=== PATIENT | male | born 1950 | race Caucasian/White ===

== ENCOUNTER 2019-02-01 08:26 | Emergency (ER) | payer MEDICARE, BC ==
[~2019-02-01] VITALS: Ht 177.8 cm; Wt 134.1 kg
[~2019-02-01 08:26] MED LIST: AMLO10TA PO; ATOR20TA66 PO; CHLO118M PO; FERR325T39 PO; FINA5TAB11 PO; LOSA1TAB39 PO; METO25TA6 PO; POTA20TA19 PO; TERA10CA4 PO; WARF7.5T48 PO
[2019-02-01 08:30] VITALS: BP 97/61
[2019-02-01] MEDS ORDERED: ACYC-202 PO (09:40)
[2019-02-01] MEDS ORDERED: TRAM50TA2 PO (09:40)
[2019-02-01] MEDS ORDERED: ACYC5CRE2 TP (09:40)
[2019-02-01] MEDS ORDERED: GABA300C PO (09:40)
== END 2019-02-01 09:59 | disposition home or self-care (01) ==
LOC: ER 08:26
DX: B02.9 Zoster without complications (principal); M54.5 Low back pain; G89.29 Other chronic pain; Z98.890 Other specified postprocedural states; Z79.2 Long term (current) use of antibiotics; Z79.899 Other long term (current) drug therapy; Z79.01 Long term (current) use of anticoagulants
CPT/HCPCS: 99284

== ENCOUNTER 2023-10-21 13:14 | Emergency (ER) | payer OTHER ==
[~2023-10-21] VITALS: Ht 177.8 cm; Wt 125.0 kg
[~2023-10-21 13:14] MED LIST changes: +GABA300C PO; +LOP25T PO; -METO25TA6 PO; +POTA-207 PO; -POTA20TA19 PO
[2023-10-21 13:20] VITALS: BP 83/62; PULSE 75; RESP 16; TEMP 97.7; O2SAT 96
[2023-10-21 14:00] LABS: BASOPHILS % (AUTO) 0.3 % (0-1); EOSINOPHILS # (AUTO) 0.1 X10'3 (0-0.9); EOSINOPHILS % (AUTO) 1.5 % (0-6); HEMATOCRIT 42.5 % (42.0-52.0); HEMOGLOBIN 14.4 g/dl (14.0-17.9); LYMPHOCYTES # (AUTO) 1.2 X10'3 (1.1-4.8); LYMPHOCYTES % (AUTO) 19.6 % (21-51); MEAN CORPUSCULAR HEMOGLOBIN 32.6 PG (27.0-31.0); MEAN CORPUSCULAR HGB CONC 33.9 g/dL (33.0-36.5); MEAN CORPUSCULAR VOLUME 96.3 FL (78-98); MEAN PLATELET VOLUME 8.1 FL (7.4-10.4); MONOCYTES # (AUTO) 0.4 X10'3 (0-0.9); MONOCYTES % (AUTO) 7.3 % (2-12); NEUTROPHILS # (AUTO) 4.2 X10'3 (1.8-7.7); NEUTROPHILS % (AUTO) 71.3 % (42-75); PLATELET COUNT 182 X10'3 (140-440); RED BLOOD COUNT 4.42 X10'6 (4.70-6.10); RED CELL DISTRIBUTION WIDTH 13.4 % (11.5-14.5); WHITE BLOOD COUNT 5.9 X10'3 (4.5-11.0)
[2023-10-21 14:20] LABS: ALBUMIN 3.8 G/DL (3.4-5.0); ANION GAP 6 (8-16); BLOOD UREA NITROGEN 60 MG/DL (7-18); CALCIUM 8.5 MG/DL (8.5-10.1); CHLORIDE 105 MMOL/L (99-107); CREATININE 1.58 MG/DL (0.60-1.10); GLUCOSE 186 MG/DL (70-104); POTASSIUM 4.8 MMOL/L (3.5-5.1); PRO BRAIN NATRIURETIC PEPTIDE 722 PG/ML (0-125); SODIUM 135 MMOL/L (135-145); TOTAL CARBON DIOXIDE 24.3 MMOL/L (24-32); eCRCL 42 ML/MIN; eGFR 43 ML/MIN
== END 2023-10-21 20:57 | disposition left against medical advice (07) ==
LOC: ER 13:14
DX: R06.00 Dyspnea, unspecified (principal); R06.02 Shortness of breath; R19.00 Intra-abdominal and pelvic swelling, mass and lump, unspecified site; Z53.21 Procedure and treatment not carried out due to patient leaving prior to being seen by health care provider
CPT/HCPCS: 36415; 71045; 80048; 83880; 84484; 85025; 93005

== ENCOUNTER 2023-12-02 18:03 | Emergency (ER) | payer OTHER ==
[~2023-12-02] VITALS: Ht 177.8 cm; Wt 122.7 kg
[2023-12-02 18:22] VITALS: BP 106/58; PULSE 73; RESP 18; TEMP 97.2; O2SAT 96
[2023-12-02] MEDS: oxymetazoline 15 ML nasal spray NS ONE (19:40)
[2023-12-02] MEDS ORDERED: AMOX-117 PO (19:54)
[2023-12-02] MEDS: LIDOcaine 1% W/epiNEPHrine 1:100,000 20ml vial SQ ONE (19:56)
[2023-12-02] MEDS: tranexamic acid 100mg/ml inj. TP ONE (19:56)
[2023-12-02] MEDS: amox tr/potassium clavulanate 875/125mg TAB PO ONE (19:58)
== END 2023-12-02 20:04 | disposition home or self-care (01) ==
LOC: ER 18:04
DX: R04.0 Epistaxis (principal); G89.29 Other chronic pain; Z79.899 Other long term (current) drug therapy; Z79.2 Long term (current) use of antibiotics; Z98.890 Other specified postprocedural states
CPT/HCPCS: 30905; 82948; 99284; J3490

== ENCOUNTER 2024-03-22 11:58 | Inpatient (IN) | payer OTHER, MEDICARE ==
[~2024-03-22] VITALS: Ht 177.8 cm; Wt 130.0 kg
[2024-03-22 12:50] LABS: BASOPHILS % (AUTO) 0.4 % (0-1); EOSINOPHILS # (AUTO) 0.1 X10'3 (0-0.9); EOSINOPHILS % (AUTO) 1.6 % (0-6); HEMOGLOBIN 13.1 g/dl (14.0-17.9); LYMPHOCYTES # (AUTO) 0.8 X10'3 (1.1-4.8); MEAN CORPUSCULAR HEMOGLOBIN 30.8 PG (27.0-31.0); MEAN CORPUSCULAR HGB CONC 32.8 g/dL (33.0-36.5); MEAN CORPUSCULAR VOLUME 93.9 FL (78-98); MEAN PLATELET VOLUME 7.4 FL (7.4-10.4); MONOCYTES # (AUTO) 0.7 X10'3 (0-0.9); MONOCYTES % (AUTO) 11.2 % (2-12); NEUTROPHILS # (AUTO) 4.6 X10'3 (1.8-7.7); NEUTROPHILS % (AUTO) 73.8 % (42-75); PLATELET COUNT 248 X10'3 (140-440); RED BLOOD COUNT 4.26 X10'6 (4.70-6.10); RED CELL DISTRIBUTION WIDTH 13.6 % (11.5-14.5); WHITE BLOOD COUNT 6.2 X10'3 (4.5-11.0)
[2024-03-22 13:00] LABS: ALBUMIN 2.5 G/DL (3.4-5.0); ANION GAP 16 (8-16); BLOOD UREA NITROGEN 102 MG/DL (7-18); BUN/CREATININE RATIO 16.5 (10.0-20.0); CALCIUM 8.5 MG/DL (8.5-10.1); CHLORIDE 98 MMOL/L (99-107); CREATININE 6.18 MG/DL (0.60-1.10); GLUCOSE 172 MG/DL (70-104); MAGNESIUM 2.6 MG/DL (1.5-2.4); POTASSIUM 3.3 MMOL/L (3.5-5.1); SODIUM 133 MMOL/L (135-145); TOTAL CARBON DIOXIDE 18.9 MMOL/L (24-32); eCRCL 11 ML/MIN; eGFR 9 ML/MIN
[2024-03-22] MEDS: normal saline 1000ML IV soln IVB ONE ×3 (13:43→16:19)
[2024-03-22] MEDS ORDERED: magnesium sulf-water 4G/100mL 100 ML IV PRN (14:20)
[2024-03-22] MEDS ORDERED: magnesium Cl slow-release 64mg tablet PO PRN (14:20)
[2024-03-22] MEDS ORDERED: ondansetron/PF 4mg/2ml inj IV PRN (14:20)
[2024-03-22] MEDS ORDERED: potassium Cl 40MEQ/1/2NS 520ml 520 ML IV PRN (14:20)
[2024-03-22] MEDS ORDERED: magnesium sulf-water 2g/50mL 50 ML IV PRN (14:20)
[2024-03-22] MEDS ORDERED: potassium Cl 20 mEq SR tablet PO PRN (14:20)
[2024-03-22 14:36] LABS: PRO BRAIN NATRIURETIC PEPTIDE 7757 PG/ML (0-125)
[2024-03-22] MEDS ORDERED: dextrose 5%-normal saline 1,000 ML IV SCH (14:40)
[2024-03-22] MEDS: LidoCAINE 2% Topical Jelly 11mL syringe (UROJET) TOP ONE (14:55)
[2024-03-22] MEDS: ringers solution, lactated 1000ml IV soln IV ONE ×2 (14:55→18:04)
[2024-03-22 15:29] LABS: BILIRUBIN,URINE MODERATE (Neg); CLARITY,URINE SLIGHTLY CLOUDY (Clear); COLOR,URINE YELLOW (Yellow); GLUCOSE, URINE NEGATIVE (Neg); KETONES,URINE 15 mg/dl (Neg); LEUKOCYTE ESTERASE ,URINE NEGATIVE (Neg); NITRITES, URINE NEGATIVE (Neg); OCCULT BLOOD,URINE NEGATIVE (Neg); PROTEIN,URINE TRACE mg/dl (Neg); UROBILINOGEN,URINE 0.2 E.U/dL (0.2-1.0)
[2024-03-22] MEDS: normal saline 1000ml 1,000 ML IV SCH (15:45)
[2024-03-22 15:47] LABS: UA COLLECTION TYPE FOLEY CATH
[2024-03-22] MEDS: NORepinephrine 8mg/ 250ml NS 250 ML IV SCH (15:48)
[2024-03-22 15:50] LABS: MUCUS STRANDS FEW /LPF (Neg)
[2024-03-22 15:51] LABS: AMORPHOUS URATES 1+; FINE GRANULAR CAST 0-3 /LPF (NEGATIVE); HYALINE CASTS >30 /LPF (NEGATIVE); SQUAMOUS EPITHELIAL CELL,UR FEW /LPF (FEW)
[2024-03-22 15:52] LABS: CAL OXALATE CRYSTALS 1+ /HPF (NEGATIVE); TRANSITIONAL EPI CELLS,URINE FEW /HPF
[2024-03-22 15:53] LABS: BACTERIA,URINE FEW /HPF (Neg)
[2024-03-22] MEDS: dexamethasone sod phosphate 10mg/ml inj IV STA (16:13)
[2024-03-22] MEDS: normal saline 1000ml 1,000 ML IV ONE (16:14)
[2024-03-22] MEDS ORDERED: ringers solution, lactated 1000ml IV soln IV ONE (16:15)
[2024-03-22] MEDS: glycopyrrolate 0.2mg/ml inj IV ONE (16:18)
[2024-03-22] MEDS: ringers solution, lacted 2,000 ML IV ONE (17:08)
[2024-03-22] MEDS: HYDROmorphone 1 mg/ml syringe IM PRN (18:17)
[2024-03-22] MEDS ORDERED: glucagon, human recombinant 1mg kit SUBCUT PRN (18:25)
[2024-03-22] MEDS ORDERED: dextrose 50%-water 50ml dispensing syringe IV PRN ×2 (18:25)
[2024-03-22] MEDS ORDERED: DEXTROSE 15 GM of carb/4 tabs (each vial/BOTTLE has 4 tablets) PO PRN ×2 (18:25)
[2024-03-22] MEDS: PERFLUTREN PROTEIN-A MICROSPHR (Optison) 0.22 MG/ML 3ML VIAL IV ONE (18:25)
[2024-03-22] MEDS: CefTRIAXone 2gm/D5W 50ml BAG 50 ML IV SCH (18:52)
[2024-03-22 19:15] LABS: HEMOGLOBIN A1C 8.9 % (4.5-6.2)
[2024-03-22] MEDS: K and/or MAG REPLACEMENT MC SCH (20:00)
[2024-03-22] MEDS: ringers solution, lacted 1,000 ML IV SCH (20:03)
[2024-03-22] MEDS: NORepinephrine 32 MG in normal saline 250ml IV soln 218 ML IV SCH (20:18)
[2024-03-22] MEDS: pantoprazole 40 MG vial IV SCH (20:36)
[2024-03-22] MEDS: potassium Cl 20 mEq SR tablet PO PRN (20:56)
[2024-03-22] MEDS: insulin glargine (Lantus) pen - multi-dose SQ SCH (21:00)
[2024-03-22] MEDS: INSULIN LISPRO 100 UNIT/ML INSULN.PEN MULTI-DOSE SQ SCH (22:33)
[2024-03-22 23:00] VITALS: BP 103/43; PULSE 74; RESP 12; O2SAT 95
[2024-03-22 23:43] LABS: BASOPHILS % (AUTO) 0.2 % (0-1); EOSINOPHILS % (AUTO) 0.4 % (0-6); HEMATOCRIT 36.7 % (42.0-52.0); LYMPHOCYTES # (AUTO) 0.9 X10'3 (1.1-4.8); LYMPHOCYTES % (AUTO) 9.6 % (21-51); MEAN CORPUSCULAR HEMOGLOBIN 31.1 PG (27.0-31.0); MEAN CORPUSCULAR HGB CONC 32.9 g/dL (33.0-36.5); MEAN CORPUSCULAR VOLUME 94.5 FL (78-98); MEAN PLATELET VOLUME 7.1 FL (7.4-10.4); MONOCYTES # (AUTO) 1.1 X10'3 (0-0.9); MONOCYTES % (AUTO) 12.2 % (2-12); NEUTROPHILS # (AUTO) 7.1 X10'3 (1.8-7.7); NEUTROPHILS % (AUTO) 77.6 % (42-75); PLATELET COUNT 238 X10'3 (140-440); RED BLOOD COUNT 3.88 X10'6 (4.70-6.10); RED CELL DISTRIBUTION WIDTH 13.7 % (11.5-14.5); WHITE BLOOD COUNT 9.1 X10'3 (4.5-11.0)
[2024-03-22 23:53] LABS: APTT 31 SECONDS (22-32); INR 1.1 INR; PROTHROMBIN TIME 11.6 SECONDS (9.0-12.0)
[2024-03-23] VITALS (25 sets, daily range): BP systolic 101–152; BP diastolic 33–71; PULSE 71–87; RESP 12–27; O2SAT 91–100
[2024-03-23] MEDS: acetaminophen 325mg tablet PO PRN (01:05)
[2024-03-23 01:10] LABS: ALANINE AMINOTRANSFERASE 22 U/L (12-78); ALBUMIN 2.2 G/DL (3.4-5.0); ALBUMIN/GLOBULIN RATIO 0.6 (1.1-1.5); ALKALINE PHOSPHATASE 92 IU/L (46-116); ANION GAP 22 (8-16); ASPARTATE AMINO TRANSFERASE 28 U/L (10-37); BILIRUBIN,TOTAL 0.4 MG/DL (0.1-1.0); BLOOD UREA NITROGEN 85 MG/DL (7-18); BUN/CREATININE RATIO 20.3 (10.0-20.0); CALCIUM 7.5 MG/DL (8.5-10.1); CHLORIDE 104 MMOL/L (99-107); CREATININE 4.18 MG/DL (0.60-1.10); GLUCOSE 205 MG/DL (70-104); SODIUM 136 MMOL/L (135-145); TOTAL PROTEIN 6.2 G/DL (6.4-8.2); eCRCL 16 ML/MIN; eGFR 14 ML/MIN
[2024-03-23 01:34] LABS: TOTAL CARBON DIOXIDE 10.2 MMOL/L (24-32)
[2024-03-23 02:51] LABS: BASOPHILS % (AUTO) 0.4 % (0-1); EOSINOPHILS % (AUTO) 0.3 % (0-6); HEMATOCRIT 36.4 % (42.0-52.0); HEMOGLOBIN 11.9 g/dl (14.0-17.9); LYMPHOCYTES # (AUTO) 0.8 X10'3 (1.1-4.8); LYMPHOCYTES % (AUTO) 9.2 % (21-51); MEAN CORPUSCULAR HEMOGLOBIN 30.7 PG (27.0-31.0); MEAN CORPUSCULAR HGB CONC 32.5 g/dL (33.0-36.5); MEAN CORPUSCULAR VOLUME 94.5 FL (78-98); MEAN PLATELET VOLUME 7.5 FL (7.4-10.4); MONOCYTES # (AUTO) 1.1 X10'3 (0-0.9); MONOCYTES % (AUTO) 12.2 % (2-12); NEUTROPHILS % (AUTO) 77.9 % (42-75); PLATELET COUNT 232 X10'3 (140-440); RED BLOOD COUNT 3.86 X10'6 (4.70-6.10); RED CELL DISTRIBUTION WIDTH 13.9 % (11.5-14.5)
[2024-03-23 03:17] LABS: ALBUMIN 2.1 G/DL (3.4-5.0); BLOOD UREA NITROGEN 85 MG/DL (7-18); BUN/CREATININE RATIO 21.9 (10.0-20.0); CALCIUM 7.6 MG/DL (8.5-10.1); CHLORIDE 104 MMOL/L (99-107); CREATININE 3.89 MG/DL (0.60-1.10); GLUCOSE 198 MG/DL (70-104); MAGNESIUM 2.1 MG/DL (1.5-2.4); SODIUM 137 MMOL/L (135-145); eCRCL 17 ML/MIN; eGFR 15 ML/MIN
[2024-03-23 03:36] LABS: ANION GAP 21 (8-16); TOTAL CARBON DIOXIDE 11.7 MMOL/L (24-32)
[2024-03-23] MEDS: sodium bicarbonate 1meq/ml inj 150 ML in dextrose 5%-water 1,000 ML IV SCH (05:08)
[2024-03-23] MEDS: ringers solution, lacted 1,000 ML IV SCH (08:59)
[2024-03-23 09:07] LABS: ABG BASE EXCESS -17.7 mmol/L (-2.0-3.0); ABG HCO3 7.7 mmol/L (21.0-28.0); ABG OXYGEN SATURATION 96.5 % (94.0-98.0); ABG PCO2 (T) 18.9 mmHg (35.0-48.0); ABG PH (T) 7.227 (7.350-7.450); ABG PO2 (T) 91.8 mmHg (83.0-108.0); ALLEN'S TEST POSITIVE; FCOHb 0.6 % (0.5-1.5); FHHb 3.5 % (0.0-5.0); FMetHb 0.3 % (0.0-1.5); FO2Hb 95.6 % (94.0-98.0); PATIENT TEMPERATURE 36.8; TOTAL HEMOGLOBIN 13.3 G/dl (13.5-17.5)
[2024-03-23] MEDS: INSULIN LISPRO 100 UNIT/ML INSULN.PEN MULTI-DOSE SQ SCH (10:25)
[2024-03-23] MEDS ORDERED: METF-900 PO (12:13)
[2024-03-23] MEDS ORDERED: SPIR25TA5 PO (12:13)
[2024-03-23] MEDS ORDERED: SEMA2PEN SUBCUT (12:13)
[2024-03-23] MEDS ORDERED: ZOLP5TAB8 PO (12:13)
[2024-03-23] MEDS ORDERED: FERR324T23 PO (12:13)
[2024-03-23] MEDS ORDERED: FURO-150 PO (12:13)
[2024-03-23] MEDS ORDERED: CARB15DR EACHEYE (12:13)
[2024-03-23] MEDS ORDERED: EMPA25TA PO (12:13)
[2024-03-23] MEDS ORDERED: ATOR80TA PO (12:13)
[2024-03-23] MEDS ORDERED: AREDS2 PO (12:13)
[2024-03-23] MEDS ORDERED: OMEP40CA21 PO (12:13)
[2024-03-23] MEDS ORDERED: SODI30SP3 BOTHNARES (12:13)
[2024-03-23] MEDS ORDERED: SACU1TAB7 PO (12:13)
[2024-03-23] MEDS ORDERED: OMEG10006 PO (12:13)
[2024-03-23] MEDS ORDERED: APIX5TAB3 PO (12:13)
[2024-03-23] MEDS: insulin glargine (Lantus) pen - multi-dose SQ SCH (20:14)
[2024-03-23] MEDS: HYDROmorphone 1 mg/ml syringe IV PRN (20:42)
[2024-03-24] VITALS (25 sets, daily range): BP systolic 101–149; BP diastolic 50–71; PULSE 78–92; RESP 11–29; O2SAT 87–95
[2024-03-24 02:52] LABS: BASOPHILS % (AUTO) 0.3 % (0-1); EOSINOPHILS # (AUTO) 0.1 X10'3 (0-0.9); EOSINOPHILS % (AUTO) 0.8 % (0-6); HEMATOCRIT 34.5 % (42.0-52.0); HEMOGLOBIN 11.5 g/dl (14.0-17.9); LYMPHOCYTES # (AUTO) 0.6 X10'3 (1.1-4.8); LYMPHOCYTES % (AUTO) 8.2 % (21-51); MEAN CORPUSCULAR HEMOGLOBIN 30.9 PG (27.0-31.0); MEAN CORPUSCULAR HGB CONC 33.4 g/dL (33.0-36.5); MEAN CORPUSCULAR VOLUME 92.5 FL (78-98); MEAN PLATELET VOLUME 7.1 FL (7.4-10.4); MONOCYTES # (AUTO) 0.7 X10'3 (0-0.9); MONOCYTES % (AUTO) 9.3 % (2-12); NEUTROPHILS # (AUTO) 6.4 X10'3 (1.8-7.7); NEUTROPHILS % (AUTO) 81.4 % (42-75); PLATELET COUNT 245 X10'3 (140-440); RED BLOOD COUNT 3.73 X10'6 (4.70-6.10); RED CELL DISTRIBUTION WIDTH 13.7 % (11.5-14.5); WHITE BLOOD COUNT 7.9 X10'3 (4.5-11.0)
[2024-03-24 02:58] LABS: ANION GAP 12 (8-16); BLOOD UREA NITROGEN 47 MG/DL (7-18); BUN/CREATININE RATIO 25.5 (10.0-20.0); CALCIUM 7.9 MG/DL (8.5-10.1); CHLORIDE 108 MMOL/L (99-107); CREATININE 1.84 MG/DL (0.60-1.10); GLUCOSE 207 MG/DL (70-104); MAGNESIUM 1.8 MG/DL (1.5-2.4); POTASSIUM 3.2 MMOL/L (3.5-5.1); SODIUM 143 MMOL/L (135-145); TOTAL CARBON DIOXIDE 23.5 MMOL/L (24-32); eCRCL 36 ML/MIN; eGFR 36 ML/MIN
[2024-03-24] MEDS: potassium Cl 40MEQ/270ML bag 270 ML IV PRN (03:43)
[2024-03-24] MEDS: ringers solution, lacted 1,000 ML IV SCH (12:25)
[2024-03-24] MEDS: COMMUNICATION ORDER 1 EA MISC MC ONE (12:27)
[2024-03-24] MEDS: psyllium seed 5.8 gm packet (sugar-free) PO SCH (19:32)
[2024-03-24] MEDS: apixaban 5mg tablet PO SCH (19:43)
[2024-03-25] VITALS (20 sets, daily range): BP systolic 105–141; BP diastolic 48–79; PULSE 66–110; RESP 14–21; TEMP 97.3–98.8; O2SAT 89–95
[2024-03-25 03:26] LABS: BASOPHILS % (AUTO) 0.4 % (0-1); EOSINOPHILS # (AUTO) 0.1 X10'3 (0-0.9); EOSINOPHILS % (AUTO) 1.8 % (0-6); HEMATOCRIT 32.1 % (42.0-52.0); HEMOGLOBIN 10.7 g/dl (14.0-17.9); LYMPHOCYTES # (AUTO) 0.9 X10'3 (1.1-4.8); LYMPHOCYTES % (AUTO) 12.8 % (21-51); MEAN CORPUSCULAR HGB CONC 33.3 g/dL (33.0-36.5); MEAN PLATELET VOLUME 7.6 FL (7.4-10.4); MONOCYTES # (AUTO) 0.5 X10'3 (0-0.9); MONOCYTES % (AUTO) 7.3 % (2-12); NEUTROPHILS # (AUTO) 5.4 X10'3 (1.8-7.7); NEUTROPHILS % (AUTO) 77.7 % (42-75); PLATELET COUNT 199 X10'3 (140-440); RED BLOOD COUNT 3.45 X10'6 (4.70-6.10); RED CELL DISTRIBUTION WIDTH 13.6 % (11.5-14.5); WHITE BLOOD COUNT 6.9 X10'3 (4.5-11.0)
[2024-03-25 03:58] LABS: ALBUMIN 1.8 G/DL (3.4-5.0); ANION GAP 5 (8-16); BLOOD UREA NITROGEN 26 MG/DL (7-18); BUN/CREATININE RATIO 25.7 (10.0-20.0); CHLORIDE 110 MMOL/L (99-107); CREATININE 1.01 MG/DL (0.60-1.10); GLUCOSE 105 MG/DL (70-104); MAGNESIUM 1.6 MG/DL (1.5-2.4); POTASSIUM 3.7 MMOL/L (3.5-5.1); SODIUM 144 MMOL/L (135-145); eCRCL 66 ML/MIN; eGFR 72 ML/MIN
[2024-03-25] MEDS ORDERED: pantoprazole 40 MG vial IV SCH (08:00)
[2024-03-25] MEDS: atorvastatin 20mg tablet PO SCH (08:35)
[2024-03-25] MEDS: furosemide 40 MG/4 ML oral solution UD cup PO ONE (13:44)
[2024-03-25] MEDS: ipratropium/albuterol 3ml nebule NEB SCH (14:52)
[2024-03-25] MEDS: zolpidem 5mg tablet PO PRN (19:31)
[2024-03-26] VITALS (11 sets, daily range): BP systolic 124–155; BP diastolic 64–78; PULSE 80–92; RESP 16–22; TEMP 97.1–98.4; O2SAT 89–97
[2024-03-26 06:46] LABS: BASOPHILS % (AUTO) 0.3 % (0-1); EOSINOPHILS # (AUTO) 0.1 X10'3 (0-0.9); EOSINOPHILS % (AUTO) 1.4 % (0-6); HEMATOCRIT 33.9 % (42.0-52.0); HEMOGLOBIN 11.1 g/dl (14.0-17.9); LYMPHOCYTES # (AUTO) 0.9 X10'3 (1.1-4.8); LYMPHOCYTES % (AUTO) 11.9 % (21-51); MEAN CORPUSCULAR HEMOGLOBIN 30.4 PG (27.0-31.0); MEAN CORPUSCULAR HGB CONC 32.8 g/dL (33.0-36.5); MEAN CORPUSCULAR VOLUME 92.7 FL (78-98); MEAN PLATELET VOLUME 7.5 FL (7.4-10.4); MONOCYTES # (AUTO) 0.5 X10'3 (0-0.9); MONOCYTES % (AUTO) 6.4 % (2-12); NEUTROPHILS # (AUTO) 6.1 X10'3 (1.8-7.7); PLATELET COUNT 214 X10'3 (140-440); RED BLOOD COUNT 3.66 X10'6 (4.70-6.10); WHITE BLOOD COUNT 7.7 X10'3 (4.5-11.0)
[2024-03-26 07:14] LABS: ALBUMIN 2.1 G/DL (3.4-5.0); ANION GAP 5 (8-16); BLOOD UREA NITROGEN 20 MG/DL (7-18); BUN/CREATININE RATIO 21.1 (10.0-20.0); CALCIUM 8.3 MG/DL (8.5-10.1); CHLORIDE 108 MMOL/L (99-107); CREATININE 0.95 MG/DL (0.60-1.10); GLUCOSE 120 MG/DL (70-104); MAGNESIUM 1.8 MG/DL (1.5-2.4); POTASSIUM 3.6 MMOL/L (3.5-5.1); SODIUM 144 MMOL/L (135-145); eCRCL 70 ML/MIN; eGFR 77 ML/MIN
[2024-03-26] MEDS ORDERED: ipratropium/albuterol 3ml nebule NEB PRN (09:40)
[2024-03-26] MEDS: levalbuterol 0.63mg/3ml nebule IH SCH (21:54)
[2024-03-27 02:00] VITALS: BP 147/93; PULSE 82; RESP 16; TEMP 97.9; O2SAT 95
[2024-03-27 03:20] VITALS: PULSE 81; RESP 18; O2SAT 91
[2024-03-27 06:49] LABS: ALBUMIN 2.2 G/DL (3.4-5.0); ANION GAP 4 (8-16); BLOOD UREA NITROGEN 20 MG/DL (7-18); BUN/CREATININE RATIO 21.3 (10.0-20.0); CALCIUM 8.6 MG/DL (8.5-10.1); CHLORIDE 108 MMOL/L (99-107); CREATININE 0.94 MG/DL (0.60-1.10); GLUCOSE 128 MG/DL (70-104); POTASSIUM 3.9 MMOL/L (3.5-5.1); SODIUM 143 MMOL/L (135-145); TOTAL CARBON DIOXIDE 31.3 MMOL/L (24-32); eCRCL 71 ML/MIN; eGFR 78 ML/MIN
[2024-03-27 07:16] LABS: BASOPHILS % (AUTO) 0.2 % (0-1); EOSINOPHILS # (AUTO) 0.1 X10'3 (0-0.9); EOSINOPHILS % (AUTO) 1.5 % (0-6); HEMATOCRIT 34.6 % (42.0-52.0); HEMOGLOBIN 11.5 g/dl (14.0-17.9); LYMPHOCYTES % (AUTO) 11.8 % (21-51); MEAN CORPUSCULAR HEMOGLOBIN 31.1 PG (27.0-31.0); MEAN CORPUSCULAR HGB CONC 33.3 g/dL (33.0-36.5); MEAN CORPUSCULAR VOLUME 93.5 FL (78-98); MEAN PLATELET VOLUME 7.5 FL (7.4-10.4); MONOCYTES # (AUTO) 0.5 X10'3 (0-0.9); MONOCYTES % (AUTO) 5.6 % (2-12); NEUTROPHILS # (AUTO) 6.9 X10'3 (1.8-7.7); NEUTROPHILS % (AUTO) 80.9 % (42-75); PLATELET COUNT 222 X10'3 (140-440); RED BLOOD COUNT 3.69 X10'6 (4.70-6.10); RED CELL DISTRIBUTION WIDTH 13.7 % (11.5-14.5); WHITE BLOOD COUNT 8.6 X10'3 (4.5-11.0)
[2024-03-27 08:00] VITALS: RESP 12; O2SAT 94
[2024-03-27 08:36] VITALS: PULSE 87; RESP 18; O2SAT 94
[2024-03-27 08:44] VITALS: PULSE 87; RESP 18
== END 2024-03-27 13:14 | disposition home health service (06) | DRG 682 ==
LOC: ER 11:59 → ED HOLD 17:40 → CICU 2S 22:13 → PCU 3S 03-25 09:20
PROVIDERS: ADMIT Internal Medicine Critical Care Medicine; ATTEND Internal Medicine Critical Care Medicine
PROC: 02HV33Z Insertion of Infusion Device into Superior Vena Cava, Percutaneous Approach (ICD-10-PCS; principal; 2024-03-22)
PROC: B548ZZA Ultrasonography of Superior Vena Cava, Guidance (ICD-10-PCS; 2024-03-22)
DX: N17.9 Acute kidney failure, unspecified (principal); R57.1 Hypovolemic shock; N39.0 Urinary tract infection, site not specified; Z68.41 Body mass index [BMI] 40.0-44.9, adult; I13.0 Hypertensive heart and chronic kidney disease with heart failure and stage 1 through stage 4 chronic kidney disease, or unspecified chronic kidney disease; I47.20 Ventricular tachycardia, unspecified; I50.32 Chronic diastolic (congestive) heart failure; E87.20 Acidosis, unspecified; E86.0 Dehydration; K52.9 Noninfective gastroenteritis and colitis, unspecified; D64.9 Anemia, unspecified; E66.01 Morbid (severe) obesity due to excess calories; E78.5 Hyperlipidemia, unspecified; G89.29 Other chronic pain; I48.91 Unspecified atrial fibrillation; Z96.653 Presence of artificial knee joint, bilateral; R16.0 Hepatomegaly, not elsewhere classified; K59.00 Constipation, unspecified; E87.6 Hypokalemia; I25.10 Atherosclerotic heart disease of native coronary artery without angina pectoris; N18.9 Chronic kidney disease, unspecified; N40.0 Benign prostatic hyperplasia without lower urinary tract symptoms; Z79.01 Long term (current) use of anticoagulants; Z79.84 Long term (current) use of oral hypoglycemic drugs; Z79.85 Long-term (current) use of injectable non-insulin antidiabetic drugs; Z98.84 Bariatric surgery status; E11.22 Type 2 diabetes mellitus with diabetic chronic kidney disease
CPT/HCPCS: 36415; 36600; 70450; 71045; 71250; 74176; 80048; 80053; 81001; 82803; 82948; 83036; 83605; 83735; 83880; 84145; 84484; 85018; 85025; 85610; 85730; 87040; 87088; 93005; 93306; 94640; 94760; 96360; 97110; 97116; 97162; 97530; 99285; A4314; A4615; A6258; A6449; C1751; G0378; J0696; J1171; J1815; J2470; J3480; J3490; J7030; J7042; J7050; J7070; J7120; J7614

== ENCOUNTER 2025-02-02 14:55 | Inpatient (IN) | payer OTHER, MEDICARE ==
[~2025-02-02] VITALS: Ht 177.8 cm; Wt 122.0 kg
[~2025-02-02 14:55] MED LIST changes: -AMLO10TA PO; +APIX5TAB3 PO; +AREDS2 PO; -ATOR20TA66 PO; +ATOR80TA PO; +CARB15DR EACHEYE; -CHLO118M PO; +EMPA25TA PO; +FERR324T23 PO; -FERR325T39 PO; -GABA300C PO; -LOP25T PO; -LOSA1TAB39 PO; +METF-900 PO; +OMEG10006 PO; +OMEP40CA21 PO; -POTA-207 PO; +SEMA2PEN SUBCUT; +SODI30SP3 BOTHNARES; -WARF7.5T48 PO; +ZOLP5TAB8 PO
--- NOTE | 2025-02-02 15:13 | Physician Documentation ---
History of Present Illness General Chief Complaint: Syncope Stated Complaint: FALL LEFT SIDE PAIN Time Seen by MD: 15:13 Primary Medical Doctor: Dr. Swift at [place] History of Present Illness Initial Comments The patient is a 74-year-old male who is followed at the [facility] he presents to the emergency room with an episode of syncope. Patient states that he has been vomiting blood as well as seen dark tarry stool. He states he has been having epistaxis every time he blows his nose he has a significant bleeding from his left naris. Patient denies any chest pain he denies any shortness of breath. Patient's symptoms have been persistent for the last 24 hours patient denies any recent fevers chills nausea or vomiting. Medication Reconciliation Allergies: Coded Allergies: No Known Allergies (Unverified , 03/22/24) Scheduled Atorvastatin Calcium (Lipitor), 1 TAB PO DAILY, (Reported) Bisoprolol Fumarate (Bisoprolol Fumarate), 1 TAB PO DAILY, (Reported) Empagliflozin (Jardiance), 1 TAB PO DAILY, (Reported) Ferrous Gluconate (Ferrous Gluconate), 1 TAB PO BID, (Reported) Finasteride (PROSCAR tablet), 1 TAB PO DAILY, (Reported) Glimepiride* (Amaryl*), 1 TAB PO DAILY, (Reported) Lysine (l-Lysine), 1 TAB PO DAILY, (Reported) Metformin Hcl* (Metformin ER*), 4 TAB PO DAILY, (Reported) [place]-3 Fatty Acids ([place]-3), 1 CAP PO BID, (Reported) Omeprazole (Prilosec), 1 CAP PO DAILY, (Reported) Semaglutide (Ozempic), 2 MG SUBCUT Q7D, (Reported) Spironolactone (Spironolactone), 25 MG PO DAILY, (Reported) Terazosin HCl (Terazosin HCl), 2 CAP PO HS, (Reported) [Areds2], 1 CAP PO BID, (Reported) Scheduled PRN Carboxymethylcellulose Sodium (Refresh Tears), 1 DROP EACHEYE BID PRN for dry eyes, (Reported) Zolpidem Tartrate (Zolpidem Tartrate), 1 TAB PO HSPRN PRN for sleep, (Reported) Discontinued Medications Apixaban (Eliquis), 1 TAB PO Q12H, (Reported) Sodium Chloride (Saline Nasal [place]), 1 SPRAYS BOTHNARES BID PRN for STUFFY NOSE, (Reported) Past Medical History Past Medical History: Epistaxis, *MUSCULOSKELETAL*, Chronic Pain Past Surgical History: orthopedic surgeries Smoking: Non-Smoker Alcohol Use: None Drug Use: none Lives with: Family Lives In: Home Occupation: retired Physical Exam Physical Exam Vital Signs: Temperature: 98.3, Source: Oral, Heart Rate: 68, Respiratory Rate: 18, BP: 98/69, Pulse Oximetry: 98, Weight: 122.000 Oxygen Flow Rate: 0 Physical Exam VITALS: Reviewed and as above. GENERAL: Alert, no apparent distress. HEENT: Normocephalic, atraumatic, PERRL, EOMI, dry mucosa, no erythema patient has some dried blood inside his left naris there was no bleeding in his posterior pharynx RESPIRATORY: Lungs clear, normal breath sounds, no respiratory distress. CHEST: No accessory muscle use, no retractions CV: Irregularly irregular rhythm, no edema, no murmur, No: JVD GI: Soft, non-tender, bowels sounds present, no rebound, guarding, or rigidity BACK: No CVA tenderness, or swelling MUSCULOSKELETAL: No deformities, no edema SKIN: Warm and dry, no rash NEURO: Oriented x4, No motor or sensory deficit PSYCH: Normal mood and affect, no agitation Progress Results/Orders Results/Orders Orders - OHANGEL EAST MD Chest,Single View (02/02/25 15:25) Monitor (02/02/25 15:13) Saline Lock (02/02/25 15:13) Oxygen (02/02/25 15:13) Ct Head (02/02/25 15:39) Hand, Complete (3vw Min) (02/02/25 ) Knee Limited (Ap/Lat) (02/02/25 ) Page Hospitalist (02/02/25 16:58) Fill Out Med Reconciliation (02/02/25 16:58) Completed Orders - ANGEL MOODY MD Chest,Single View (02/02/25 15:25) Cbc/Diff (02/02/25 15:13) BMP (02/02/25 15:13) PBNP (02/02/25 15:13) Electrocardiogram (02/02/25 15:13) Hs Troponin I W Calculations (02/02/25 15:13) Hs Troponin I W Calculations (02/02/25 17:13) Hs Troponin I W Calculations (02/02/25 18:13) Ct Head (02/02/25 15:39) Hand, Complete (3vw Min) (02/02/25 ) Knee Limited (Ap/Lat) (02/02/25 ) Normal Saline 1000ml (0.9% Sodium Chlori (02/02/25 16:55) Hgb A1c (02/02/25 15:04) Ferritin (02/02/25 15:04) Osmolality (02/02/25 15:04) TSH (02/02/25 15:04) Vital Signs 02/02/25 02/02/25 02/02/25 02/02/25 15:02 15:44 16:07 17:02 Temp 98.3 98.3 Pulse 68 95 81 Resp 18 18 16 B/P (MAP) 98/69 109/58 (75) 105/58 (74) Pulse Ox 98 96 96 O2 Flow Rate 0 0 0 Laboratory Tests Test 02/02/25 15:04 White Blood Count 6.5 Red Blood Count 3.88 L Hemoglobin 12.3 L Hematocrit 36.4 L Mean Corpuscular Volume 93.9 Mean Corpuscular Hemoglobin 31.8 H Mean Corpuscular Hemoglobin Concent 33.9 Red Cell Distribution Width 13.2 Platelet Count 178 Mean Platelet Volume 8.0 Neutrophils (%) (Auto) 74.8 Lymphocytes (%) (Auto) 17.5 L Monocytes (%) (Auto) 7.2 Eosinophils (%) (Auto) 0.3 Basophils (%) (Auto) 0.2 Neutrophils # (Auto) 4.9 Lymphocytes # (Auto) 1.1 Monocytes # (Auto) 0.5 Eosinophils # (Auto) 0.0 Basophils # (Auto) 0.0 CBC Comment Sodium Level 137 Potassium Level 5.2 H Chloride Level 105 Carbon Dioxide Level 24.1 Anion Gap 8 Blood Urea Nitrogen 61 H Creatinine 1.46 H Estimated GFR/1.73 m2 47 BUN/Creatinine Ratio 41.8 H Glucose Level 190 H Hemoglobin A1c 7.3 H Osmolality 318 H Calcium Level 8.1 L Ferritin 57 Troponin I High Sensitivity 19 Pro-B-Type Natriuretic Peptide 565 H Albumin 3.2 L Thyroid Stimulating Hormone (TSH) 3.08 Chemistry Comments EKG/XRAY/CT/US/VASC/MRI Bone/Soft Tissue X-Ray (Spine) : Additional Comment DIAGNOSTIC RADIOLOGY Patient: MARIELA JONES Medical Record: [id number] [facility] : 1950, Age: 74 Sex: Male Location: ER Patient Status: REG ER Service Date/Time: 02/02/25 Ordering Physician: ANGEL MOODY MD Exam: KNEE LIMITED (AP/LAT) CLINICAL INDICATION: LEFT KNEE PAIN AFTER FALL TECHNIQUE: 2 radiographic views of the left knee were obtained. Comparison: None FINDINGS/IMPRESSION: There is total knee replacement with intact hardware and no evidence of periprosthetic fractures. No dislocation. Well corticated bony fragments adjacent to the medial knee joint space which most likely represent sequela of prior injury/ surgery. Vascular calcification is noted. Electronically Signed by:BERTA DUNAWAY DO Date & Time: 02/02/251544 Dictated by: BERTA DUNAWAY DO Dictation date and time: 02/02/251544 Primary Care Provider: NO PRIMARY CARE PROVIDER cc: ANGEL MOODY MD ~ Bone/Soft Tissue X-Ray (Ext.) : Additional Comment Patient: MARIELA JONES Medical Record: [id number] [facility] : 1950, Age: 74 Sex: Male Location: ER Patient Status: REG ER Service Date/Time: 02/02/25 Ordering Physician: ANGEL MOODY MD Exam: HAND, COMPLETE (3VW MIN) CLINICAL INDICATION: RIGHT HAND PAIN AFTER FALL TECHNIQUE: 3 radiographic views of the right hand were obtained. Comparison: None FINDINGS/IMPRESSION: There is no evidence of acute fracture or dislocation. [id number] degenerative changes of the distal interphalangeal joints of the 3rd and 4th digits. There appears to be old fracture deformity of the proximal part of the 3rd digit middle phalanx. Electronically Signed by:BERTA DUNAWAY DO Date & Time: 02/02/25 1546 Dictated by: BERTA DUNAWAY DO Dictation date and time: 02/02/25 1546 Primary Care Provider: NO PRIMARY CARE PROVIDER cc: ANGEL MOODY MD ~ CT : Impression Procedure: [facility] Study Date and Requested Time: 02/02/2025 03:36 PM History: fall on eliquis Comparison: CT CT HEAD on DOS: 03/22/24 Dose: CTDI: 69.17 mGy DLP: 1269.73 mGycm Technique: Multiplanar images obtained through the brain without intravenous contrast. Findings: Mild diffuse brain atrophy. Mild chronic small-vessel ischemic changes. 1 x 0.7 cm hypodensity within the left basal ganglia. No hemorrhages, masses, mass effect, midline shift, herniation or cytotoxic edema following a large vascular territory. No intra-axial or extra-axial fluid collections. No evidence of hydrocephalus. The basal cisterns are patent. The pituitary gland, sella and parasellar regions are unremarkable. The cerebellar tonsils are in normal position. The cerebellum is unremarkable. The orbits and globes are unremarkable. Mucous retention cyst within the left maxillary sinus. Otherwise, the paranasal sinuses and mastoids are clear. There are no worrisome calvarial lesions. Impression: 1 x 0.7 cm hypodensity over the left basal ganglia which may represent infarct of unknown chronicity. Otherwise, no evidence of acute intracranial abnormalities. If there is concern for acute infarct, MRI should be considered for further evaluation. Electronically Signed by:BERTA DUNAWAY DO Date & Time: 02/02/25 1558 Dictated by: BERTA DUNAWAY DO Dictation date and time: 02/02/25 1539 Primary Care Provider: NO PRIMARY CARE PROVIDER cc: ANGEL MOODY MD ~ Medical Decision Making Findings The patient's EKG was interpreted as a atrial fibrillation rate of 75 with a left axis deviation and nonspecific ST abnormalities EKG was interpreted as abnormal. Time of the EKG was 15 16. The patient presents with a syncopal episode the patient acknowledges that he has been having a large amount of bleeding from his left naris currently he is not bleeding from his left naris he does have a high BUN to creatinine ratio and he does report dark tarry stools it is unclear whether this is coming from the epistaxis or whether he may have an additional GI bleed, patient has been given IV fluids here in the emergency department he is hemodynamically stable right now the patient has been advised that I recommend he be admitted for observation as we try and figure this out as well as monitor him on telemetry for the syncope. The patient's imaging was reviewed the patient's pulse oximetry was interpreted as adequate and normal his prior hospitalizations were reviewed his labs were interpreted. 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 Departure Impression: Primary Impression: Rectal bleeding Additional Impressions: Epistaxis Syncope Qualified Codes: R55 - Syncope and collapse Referrals: NO PRIMARY CARE PROVIDER (PCP) Signature Scribe Signature: no scribe Attestation: The note accurately reflects work and decisions made by me.Angel Moody MD 02/05/25 00:17 ANGEL MOODY MD Feb 02, 2025 15:13
--- NOTE | 2025-02-02 15:18 | ELECTROCARDIOGRAPH REPORT ---
[facility] Test Date: 2025-02-02 Test Time: 15:16:31 Pat Name: MARIELA JONES Department: [facility]-ER Patient ID: [facility]-[id number] Room: Gender: M [employer]: : 1950 Requested By: ANGEL DOWNING Order Number: [id number] Reading MD: Measurements Intervals [place] Rate: 75 P: 0 [place]: 0 QRS: -41 QRSD: 100 T: 18 QT: 393 QTc: 439 Interpretive Statements Atrial fibrillation Ventricular premature complex Left anterior fascicular block Low voltage, precordial leads Abnormal R-wave progression, early transition Please click the below link to view image of tracing.
[2025-02-02 15:22] LABS: MEAN PLATELET VOLUME 8.0 FL (7.4-10.4); RED CELL DISTRIBUTION WIDTH 13.2 % (11.5-14.5)
[2025-02-02 15:47] LABS: CREATININE 1.46 MG/DL (0.60-1.10); PRO BRAIN NATRIURETIC PEPTIDE 565 PG/ML (0-450); TOTAL CARBON DIOXIDE 24.1 MMOL/L (24-32); eCRCL 45 ML/MIN; eGFR 47 ML/MIN
--- NOTE | 2025-02-02 15:47 | RADIOLOGY REPORT ---
CHEST RADIOGRAPH Indication: CP Technique: Single frontal view of the chest was obtained Comparison: DI CHEST,SINGLE VIEW on DOS: 03/25/24, DI CHEST,SINGLE VIEW on DOS: 03/22/24, CT CT CHEST ABDOMEN PELVIS on DOS: 03/22/24 FINDINGS: Lines and Tubes: None Lungs: Indistinctness of the left lateral hemidiaphragm Pleura: No effusion. No pneumothorax. Cardiomediastinal contours: Borderline cardiomegaly. Bones: No acute osseous abnormality. IMPRESSION: Indistinctness of the left lateral hemidiaphragm which may be from overlying cardiac silhouette with underlying effusion/atelectasis not excluded.
--- NOTE | 2025-02-02 15:48 | RADIOLOGY REPORT ---
CLINICAL INDICATION: LEFT KNEE PAIN AFTER FALL TECHNIQUE: 2 radiographic views of the left knee were obtained. Comparison: None FINDINGS/IMPRESSION: There is total knee replacement with intact hardware and no evidence of periprosthetic fractures. No dislocation. Well corticated bony fragments adjacent to the medial knee joint space which most likely represent sequela of prior injury/ surgery. Vascular calcification is noted.
--- NOTE | 2025-02-02 15:49 | RADIOLOGY REPORT ---
CLINICAL INDICATION: RIGHT HAND PAIN AFTER FALL TECHNIQUE: 3 radiographic views of the right hand were obtained. Comparison: None FINDINGS/IMPRESSION: There is no evidence of acute fracture or dislocation. [id number] degenerative changes of the distal interphalangeal joints of the 3rd and 4th digits. There appears to be old fracture deformity of the proximal part of the 3rd digit middle phalanx.
--- NOTE | 2025-02-02 16:00 | RADIOLOGY REPORT ---
Procedure: [facility] Study Date and Requested Time: 02/02/2025 03:36 PM History: fall on eliquis Comparison: CT CT HEAD on DOS: 03/22/24 Dose: CTDI: 69.17 mGy DLP: 1269.73 mGycm Technique: Multiplanar images obtained through the brain without intravenous contrast. Findings: Mild diffuse brain atrophy. Mild chronic small-vessel ischemic changes. 1 x 0.7 cm hypodensity within the left basal ganglia. No hemorrhages, masses, mass effect, midline shift, herniation or cytotoxic edema following a large v ascular territory. No intra-axial or extra-axial fluid collections. No evidence of hydrocephalus. The basal cisterns are patent. The pituitary gland, sella and parasellar regions are unremarkable. The cerebellar tonsils are in nor mal position. The cerebellum is unremarkable. The orbits and globes are unremarkable. Mucous retention cyst within the left maxillary sinus. Other arevalo, the paranasal sinuses and mastoids are clear. There are no worrisome calvarial lesions. Impression: 1 x 0.7 cm hypodensity over the left basal ganglia which may represent infarct of unknown chronicity. Otherwise, no evidence of acute intracranial abnormalities. If there is concern for acute infarct, MRI should be considered for further evaluation.
[2025-02-02] MEDS ORDERED: BISO10TA16 PO (16:59)
[2025-02-02] MEDS ORDERED: LYSI500T20 PO (17:00)
[2025-02-02] MEDS ORDERED: SPIR25TA5 PO (17:00)
[2025-02-02] MEDS ORDERED: GLIM1TAB57 PO (17:01)
[2025-02-02] MEDS ORDERED: potassium Cl 40MEQ/1/2NS 520ml 520 ML IV PRN (17:10)
[2025-02-02] MEDS ORDERED: magnesium hydroxide 30ml (MOM) UD suspension PO PRN (17:10)
[2025-02-02] MEDS ORDERED: mag hydrox/Alum hydrox/simeth 30ml oral suspension PO PRN (17:10)
[2025-02-02] MEDS ORDERED: ondansetron/PF 4mg/2ml inj IV PRN (17:10)
[2025-02-02] MEDS ORDERED: potassium Cl 20 mEq SR tablet PO PRN ×2 (17:10)
[2025-02-02] MEDS ORDERED: magnesium Cl slow-release 64mg tablet PO PRN (17:10)
[2025-02-02] MEDS ORDERED: magnesium sulf-water 4G/100mL 100 ML IV PRN (17:10)
[2025-02-02] MEDS ORDERED: magnesium sulf-water 2g/50mL 50 ML IV PRN (17:10)
[2025-02-02] MEDS: normal saline 1000ML IV soln IVB ONE (17:11)
[2025-02-02] MEDS: normal saline 1000ml 1,000 ML IV SCH (18:11)
--- NOTE | 2025-02-02 18:26 | HISTORY AND PHYSICAL-Residence ---
History & Physical Providers to CC Resident Creating Document: WOODY GREEN, RES ~ History of Present Illness Primary Medical Doctor: Tita Resendiz. PROPERTY APPRAISER. Manager Game: Dr. Park Reason for Admit\Complaint: Syncope History of Present Illness 74 years old male patient with past medical history of CAD s/p four stents, diabetes mellitus, AFib, dyslipidemia, hypertension, BPH, congestive heart failure came to the hospital with chief complaint of syncope. As per patient and daughter Emani Bell (phone number: [phone]) who is at the bedside stated that the patient had nose bleeding yesterday while the patient was swimming. After this episode last night he started having coffee-ground hematemesis 8-9 episodes during the last night. As per patient he has episode of nose bleeding stopped this morning. And during this morning he had an episode of bright red blood diarrhea accompanied by clots. During this afternoon approximately 2:00 p.m. the patient endorses that he passed out while he was walking from his bedroom to the restroom and before this episode he felt like everything is spinning around. As per daughter the patient lost consciousness for approximately 3-4 minutes. The patient did not lose urinary or intestinal control. Currently the patient denies any chest pain, palpitations, urinary symptoms, fever sensation, nausea. Allergies: Coded Allergies: No Known Allergies (Unverified , 03/22/24) Home Medications Home Medications Active Reported Amaryl* (Glimepiride) 1 Mg Tablet 1 Tab PO DAILY 30 Days l-Lysine (Lysine) 500 Mg Tablet 1 Tab PO DAILY 30 Days Spironolactone 25 Mg Tablet 25 Mg PO DAILY Bisoprolol Fumarate 10 Mg Tablet 1 Tab PO DAILY 30 Days PROSCAR tablet (Finasteride) 5 Mg Tablet 1 Tab PO DAILY 30 Days Zolpidem Tartrate 5 Mg Tablet 1 Tab PO HSPRN PRN 30 Days Terazosin HCl 10 Mg Capsule 2 Cap PO HS 30 Days Saline Nasal [place] (Sodium Chloride) 0.65 % [place] 1 Sprays BOTHNARES BID PRN 7 Days Ozempic (Semaglutide) 2 Mg/0.75 Ml (8 Mg/3 Ml) Pen.injctr 2 Mg SUBCUT Q7D 30 Days Prilosec (Omeprazole) 40 Mg Capsule 1 Cap PO DAILY 30 Days [Areds2] 1 Cap PO BID Metformin ER* (Metformin HCl) 500 Mg Tab.sr.24h 4 Tab PO DAILY 30 Days [place]-3 ([place]-3 Fatty Acids) 1,000 Mg Capsule 1 Cap PO BID 30 Days Ferrous Gluconate 324 Mg (37.5 Mg Iron) Tablet 1 Tab PO BID 30 Days Jardiance (Empagliflozin) 25 Mg Tablet 1 Tab PO DAILY 30 Days Refresh Tears (Artificial Tears) 0.5 % Drops 1 Drop EACHEYE BID PRN 30 Days Lipitor (Atorvastatin Calcium) 80 Mg Tablet 1 Tab PO DAILY 30 Days Eliquis (Apixaban) 5 Mg Tablet 1 Tab PO Q12H 30 Days Past Medical History Past Medical History CAD s/p four stents in 2014. Diabetes mellitus taking metformin, Ozempic. AFib taking Eliquis 5 mg b.i.d.. Dyslipidemia taking atorvastatin. Hypertension taking amlodipine 10 mg daily. BPH taking finasteride 5 mg daily and terazosin 10 mg daily. Congestive heart failure taking furosemide 20 mg daily, spironolactone 25 mg daily, Jardiance 25 mg daily. Insomnia taking zolpidem 5 mg HS. Past Surgical History Surgical History Comment CAD s/p four stents in 2014. Appendectomy. Gastric bypass. Inguinal hernia repair. Bilateral knee replacement. Family History Family History: Aortic aneurysm MOTHER, Onset:60 years & older Past Social History Smoking: Non-Smoker Alcohol Use: Occasionally (Per patient he drinks four beers every weekend since Oct, 2024.) Drug Use: None Lives with: Family (He currently lives with his daughter Emani Bell (phone number: [phone])) Lives In: Home Occupation: retired ROS Constitutional: Denies: no symptoms reported, see HPI, chills, diaphoresis, fever, malaise, weakness, other Eyes: Denies: no symptoms reported, see HPI, pain, discharge, blurred vision, double vision, itching, photophobia, redness, tearing, other ENT: Denies: no symptoms reported, see HPI, ear pain, ear bleeding, ear discharge, hearing loss, ear ringing, nose pain, nose bleeding, nose congestion, nose discharge, throat pain, throat swelling, voice change, mouth pain, mouth bleeding, mouth swelling, other Respiratory: Reports: see HPI Cardiovascular: Reports: see HPI Gastrointestinal: Reports: see HPI Genitourinary: Denies: no symptoms reported, see HPI, burning, discharge, dysuria, frequency, flank pain, hematuria, incontinence, pain, decreased urine output, urgency, other Male Genitalia: Denies: no symptoms reported, see HPI, penile discharge, penile sore, testicular pain, testicular swelling, other Neurological: Denies: no symptoms reported, see HPI, speech problem, headache, dizziness, fainting, tingling, left sided numbness, right sided numbness, left sided weakness, right sided weakness, problems walking, unable to move lower ext, unable to move upper ext, petit mal seizures, tonic-clonic seizures, cognitive dysfunction, other Musculoskeletal: Denies: no symptoms reported, see HPI, pain, swelling, back pain, gout, joint pain, joint swelling, muscle pain, muscle swelling, muscle stiffness, neck pain, other Integumentary: Denies: no symptoms reported, see HPI, rash, itching, lesions, lumps, bruise(s), wound(s), laceration(s), dryness, change in color, other Allergic/Immunologic: Denies: no symptoms reported, see HPI, hives, itching, frequent infections, difficulty healing, other Hematologic/Lymphatic: Denies: no symptoms reported, see HPI, anemia, blood clots, easy bleeding, easy bruising, swollen glands, other Endocrine: Denies: no symptoms reported, see HPI, excessive sweating, flushing, intolerance to cold, intolerance to heat, increased hunger, increased thrist, increased urine, unexplained weight gain, unexplained weight loss, other Psychiatric: Denies: no symptoms reported, see HPI, depression, anxiety, sleeplessness, hopeless, suicidal, hallucinations, other Exam Vitals: Vital Signs Date Time Temp Pulse Resp B/P (MAP) Pulse Ox O2 Delivery O2 Flow Rate FiO2 02/02/25 18:08 88 18 131/61 (84) 99 0 02/02/25 16:07 98.3 Physical exam: General: Well alert, well oriented, not confused, not agitated, not in acute distress, well cooperated during the physical. HEENT: Conjunctive are pale, sclerae clear, no icterus, pupil is equal in both sides, reactive to light, no ear discharge, no pharyngeal erythema or an edema. Neck: Supple, no JVD, no lymphadenopathy and thyromegaly. Chest: Equal air entry on both lungs, presence of crackles in the left base. Cardiovascular: S1-S2 rhythm and rate, no gallops, no rubs, no murmurs Abdomen: No visible peristalsis, Bowel sounds present on auscultation, soft, nontender, no guarding, no rigidity, presence of scar in the left lower quadrant, presence of rash in the right lower quadrant. Extremities: No obvious deformities, no pitting edema bilaterally, capillary refill intact, peripheral pulsations are intact on both sides, right thumb swelling, left elbow abrasion, left knee abrasion, presence of scars in bilateral knees. Central Nervous System: No focal neurological deficits, no motor or sensory weakness in all 4 extremities, could move all 4 extremities, 2+ deep tendon reflexes, negative Babinski. Musculoskeletal: No joint swelling, deformities, inflammations, and no scoliosis and back tenderness Skin: Warm and dry. Diagnostic Data Last Recorded Lab Results: 02/02/25 1504 02/02/25 1504 Advance Care Planning Advanced Care plannin - 30 Minutes (I spent a total of 17 minutes on reviewing various resuscitative measures/ACP with the patient at the time of admission. The patient has decided on a full code status.) Additional Plan Assessment and plan: 74 years old male patient came to the hospital after a syncopal episode. Syncope: Hypovolemic shock: Hematemesis/hematochezia: Possible upper GI bleeding: Epistaxis: Normocytic hyperchromic anemia: 1. Peptic ulcer disease. 2. Diverticular bleeding. A: The patient came to the hospital with chief complaint of epistaxis and hematemesis, one episode of bright red blood diarrhea. Blood pressure on arrival 98/69, the patient received 1 L of NS bolus, current blood pressure came up to 131/61. Patient was taking Eliquis for AFib. Hemoglobin 12.3, hematocrit 36.4, MCV 93.9, MCH 31.8. BUN 61. Plan: GI consulted. Awaiting recommendations. Hemogram q.6h. Protonix 40 mg IV b.i.d. NS at 100 mL/hour. Use if hemoglobin levels dropped below seven. Possible prerenal acute kidney injury likely secondary to hypovolemia: The patient came to the hospital after several episodes of hematemesis, epistaxis and red blood diarrhea. Creatinine 1.46, GFR 47, BUN/creatinine ratio 41.8. Plan: Follow-up urine lytes. NS at 100 mL/hour. AFib: EKG: Irregular rhythm, absence of P waves, AFib, PVC a heart rate of 78, left axis deviation. Plan: Hold Eliquis due to GI bleeding. Diabetes mellitus: Current glucose levels: 190. Plan: Follow-up hemoglobin A1c. Hyperglycemia/hypoglycemia protocol in place. Medium dose sliding scale short- acting insulin. Chronic diastolic congestive heart failure with preserved ejection fraction of 60-65%: Echocardiogram on 2023: LVEF: 60-65%, RVSP 51 mmHg. Right ventricle is mildly dilated with adequate function. Left atrium is severely dilated. Current proBNP 565. Plan: The patient currently looks dehydrated. Giving IV fluids. We will hold furosemide due to low blood pressure. We will continue Jardiance 25 mg, spironolactone 25 mg daily after med reconciliation. h/o dyslipidemia: Follow-up lipid panel Atorvastatin 80 mg daily. h/o Hypertension: We will hold amlodipine 10 mg due to low blood pressure. h/o BPH: Finasteride 5 mg daily and terazosin 10 mg daily after med reconciliation. Code status: Full code DVT prophylaxis: SCDs Analgesia/sedation: Morphine Line/tube: PIV GI prophylaxis: Protonix Nutrition: Clear liquid diet/NPO after midnight. PT: Ordered Prognosis: Guarded Disposition: The patient will be admitted to PCU with telemetry. Woody Correia Internal Medicine Resident [facility] Date of Service: Feb 02, 2025 Billing Provider: LISA ABDI MD Common Visit Codes: 27456-WGRANSR INP/OBS CARE (HIGH) Secondary Visit Codes: 50785-[id number] CARE PLAN 30 MINUTES WOODY GREEN, RES Feb 02, 2025 18:26 LISA ABDI MD Feb 04, 2025 07:49
[2025-02-02] MEDS ORDERED: CARBOXYMETHYLCELLULOSE SODIUM EACHEYE PRN (19:15)
[2025-02-02] MEDS ORDERED: dextrose 50%-water 50ml dispensing syringe IV PRN ×2 (19:15)
[2025-02-02] MEDS ORDERED: salt irrigation nasal spray 45 ML SPRAY NS PRN (19:15)
[2025-02-02] MEDS ORDERED: DEXTROSE 15 GM of carb/4 tabs (each vial/BOTTLE has 4 tablets) PO PRN ×2 (19:15)
[2025-02-02] MEDS ORDERED: glucagon, human recombinant 1mg kit SUBCUT PRN (19:15)
[2025-02-02 19:36] LABS: OSMOLALITY 318 MOSM/K (280-300)
[2025-02-02 19:37] LABS: MEAN PLATELET VOLUME 7.9 FL (7.4-10.4); RED CELL DISTRIBUTION WIDTH 13.3 % (11.5-14.5)
[2025-02-02] MEDS: K and/or MAG REPLACEMENT MC SCH (20:00)
[2025-02-02 20:05] LABS: LEUKOCYTE ESTERASE ,URINE NEGATIVE (Neg); NITRITES, URINE NEGATIVE (Neg); OCCULT BLOOD,URINE NEGATIVE (Neg)
[2025-02-02 20:08] LABS: UA COLLECTION TYPE URINAL
[2025-02-02 20:11] LABS: % IRON SATURATION 41 % (11-46)
[2025-02-02 20:16] LABS: CREATININE,URINE RANDOM 28.0 MG/DL; OSMOLALITY UA 466.0 MOSM/K (50-1400); UA UREA RANDOM 418.0 MG/DL
[2025-02-02 20:24] VITALS: BP 117/62; PULSE 114; RESP 14; TEMP 97.4; O2SAT 94
[2025-02-02 20:26] LABS: SQUAMOUS EPITHELIAL CELL,UR NONE SEEN /LPF (FEW)
[2025-02-02 20:34] LABS: UA EOSINOPHILS NO EOS /HPF
[2025-02-02 22:00] VITALS: BP 132/75; PULSE 112; RESP 14; RESP 20; TEMP 97.7; O2SAT 94; O2SAT 96
[2025-02-02] MEDS: OMEGA-3/DHA/EPA/FISH OIL 1 EACH CAPSULE.DR PO SCH (22:03)
[2025-02-02] MEDS: INSULIN LISPRO 100 UNIT/ML INSULN.PEN MULTI-DOSE SQ SCH (22:16)
[2025-02-03] VITALS (26 sets, daily range): BP systolic 92–126; BP diastolic 46–108; PULSE 70–125; RESP 15–24; TEMP 97.3–100; O2SAT 87–99
[2025-02-03 02:03] LABS: MEAN PLATELET VOLUME 8.1 FL (7.4-10.4); RED CELL DISTRIBUTION WIDTH 13.4 % (11.5-14.5)
[2025-02-03 02:19] LABS: CHOL/HDL RATIO 2.2 (0.00-4.99); CREATININE 1.41 MG/DL (0.60-1.10); LDL CHOLESTEROL 36 MG/DL (50-100); TOTAL CARBON DIOXIDE 25.9 MMOL/L (24-32); eCRCL 47 ML/MIN; eGFR 49 ML/MIN
[2025-02-03] MEDS ORDERED: fentaNYL/PF 50MCG/1 ML 2ML syringe ONE (06:56)
[2025-02-03] MEDS ORDERED: LIDOcaine 2% (20mg/ml) 5ml vial ONE (06:57)
[2025-02-03] MEDS ORDERED: succinylcholine 20mg/ml inj IV ONE (06:57)
[2025-02-03] MEDS ORDERED: propofol inj 20 ML IV ONE (06:57)
[2025-02-03] MEDS ORDERED: ondansetron/PF 4mg/2ml inj IV PRN (07:05)
[2025-02-03] MEDS ORDERED: labetalol 20mg/4ml (5mg/ml) syringe IV PRN (07:05)
[2025-02-03] MEDS ORDERED: hydrALAZINE 20mg/ml inj. IV PRN (07:05)
[2025-02-03] MEDS ORDERED: morphine 4 MG/ML inj SYRINge IV PRN (07:05)
[2025-02-03] MEDS ORDERED: ringers solution, lacted 1,000 ML IV SCH (07:05)
[2025-02-03] MEDS ORDERED: metoprolol tartrate 1mg/ml inj IV ONE (07:32)
[2025-02-03] MEDS ORDERED: LYSINE 500 MG PO SCH (08:00)
--- NOTE | 2025-02-03 08:13 | CONSULTATION ---
DATE OF CONSULTATION: 02/03/2025 DICTATING PHYSICIAN: Ulises Velazco MD REASON FOR CONSULTATION: GI bleeding. HISTORY OF PRESENT ILLNESS: The patient came in apparently with syncope. Upon questioning, he reports having had multiple episodes of hematemesis with coffee-ground emesis the previous night. The patient apparently also had some bright red blood per rectum. The patient has a confusing history of epistaxis, which was started in the morning and eventually stopped. The patient also has a history of coronary artery disease, status post 4 stent placements, diabetes and atrial fibrillation. The patient has been on Eliquis. He remains stable since he is being here. Apparently, he came in with slightly low blood pressure systolic in the 80s-90s, subsequently felt better. Hemoglobin; however, has remained stable around 10 gram. He has not had shown any signs of active bleeding. There is no history of similar episodes of GI bleeding in the past and there is no record available of his previous endoscopic workup at this time. He remained stable overnight. The patient is status post gastric bypass surgery, the nature of which is unclear to him. PAST MEDICAL HISTORY: As above. FAMILY HISTORY: Noncontributory. PERSONAL HISTORY: Noncontributory. REVIEW OF SYSTEMS: A 12-point review of system is essentially same as history of present illness. PHYSICAL EXAMINATION: GENERAL: He is awake, alert, appears to be in no apparent distress. VITAL SIGNS: Normal. NECK: Supple. No thyromegaly. No JVD. No significant lymphadenopathy. HEENT: Oral cavity within normal limits. HEART: Normal. LUNGS: Normal. ABDOMEN: Soft, nontender. No masses, no organomegaly. Bowel sounds are present. EXTREMITIES: Reveal no clubbing, cyanosis, or edema. CENTRAL NERVOUS SYSTEM: Within normal limits. LABORATORY DATA: Laboratories values were reviewed, essentially as mentioned above; however, coagulation profile is not available. IMPRESSION: An elderly man with history of gastric bypass, comes in with gastrointestinal bleeding. It is not very clear to me whether it is upper gastrointestinal or lower gastrointestinal. There is a history of hematemesis as well as hematochezia. He will need bidirectional endoscopic workup for the significant bleeding that he is coming with. We will start him at upper endoscopy and subsequently proceed with the colonoscopy. The risks and benefits explained, understands and wishes to proceed. Differential diagnoses include stomal ulcers in the view of his gastric bypass surgery, although peptic ulcer disease is less likely. Other etiologies including stomal neoplastic lesions also have to be considered. Further recommendations will be made after the endoscopy. Ulises Velazco MD TID: [id number] RECEIPT: [id number] PC/SUM
[2025-02-03] MEDS: EMPAGLIFLOZIN 25 MG TABLET PO SCH (09:40)
[2025-02-03] MEDS: metoprolol succinate 25mg (24-HOUR) SR. Tablet PO SCH (09:41)
[2025-02-03 09:48] LABS: MEAN PLATELET VOLUME 8.4 FL (7.4-10.4); RED CELL DISTRIBUTION WIDTH 13.2 % (11.5-14.5)
[2025-02-03 09:59] LABS: APTT 25 SECONDS (22-32); INR 1.1 INR
[2025-02-03 12:45] LABS: MEAN PLATELET VOLUME 8.1 FL (7.4-10.4); RED CELL DISTRIBUTION WIDTH 13.5 % (11.5-14.5)
[2025-02-03] MEDS: mupirocin 2% nasal ointment 1gm UD NS ONE (15:18)
--- NOTE | 2025-02-03 18:13 | PROGRESS NOTE- Residence ---
Progress Note - Resident Providers to CC Resident Creating Document: THOMPSON ALEXANDER RES ~ Antibiotic Timeout Antibiotic Ordered?: No Subjective Patient seen and examined at the bedside, feeling much better denied any shortness of breath chest pain or any new hematemesis Objective Vital Signs Date Time Temp Pulse Resp B/P (MAP) Pulse Ox O2 Delivery O2 Flow Rate FiO2 02/03/25 16:21 97.4 70 15 96/53 (67) 92 02/03/25 13:45 Room Air 02/03/25 08:33 0.0 Result Diagram: 02/04/25 0100 02/04/25 010 General: Well alert, well oriented, not confused, not agitated HEENT: Conjunctive are pale, sclerae clear, no icterus, pupil is equal in both sides, reactive to light, no ear discharge, no pharyngeal erythema or an edema. Neck: Supple, no JVD, no lymphadenopathy and thyromegaly. Chest: Equal air entry on both lungs, no wheezing crackle Cardiovascular: S1-S2 rhythm and rate, no gallops, no rubs, no murmurs Abdomen: No visible peristalsis, Bowel sounds present on auscultation, soft, nontender, no guarding, no rigidity, presence of scar in the left lower quadrant Extremities: No obvious deformities, no pitting edema bilaterally, capillary refill intact, peripheral pulsations are intact on both sides, right thumb swelling, left elbow abrasion, left knee abrasion, presence of scars in bilateral knees. Central Nervous System: No focal neurological deficits, no motor or sensory weakness in all 4 extremities, could move all 4 extremities, 2+ deep tendon reflexes, negative Babinski. Musculoskeletal: No joint swelling, deformities, inflammations, and no scoliosis and back tenderness Skin: Warm and dry. Coagulation Studies Laboratory Tests Test 02/03/25 08:58 Prothrombin Time 10.8 SECONDS (9.0-12.0) INR International Normalized Ratio 1.1 INR Activated Partial Thromboplast Time 25 SECONDS (22-32) Coagulation Comments Plan Plan 74 years old male patient came to the hospital after a syncopal episode. Syncope Upper GI bleeding Epistaxis History of atrial fibrillation on Eliquis Normocytic hyperchromic anemia: Hypovolemic shock ruled out The patient came to the hospital with chief complaint of epistaxis and hematemesis, one episode of bright red blood diarrhea. Blood pressure on arrival 98/69, the patient received 1 L of NS bolus, current blood pressure came up to 131/61. Patient was taking Eliquis for AFib. Hemoglobin 12.3, hematocrit 36.4, MCV 93.9, MCH 31.8. BUN 61. GI consulted, EGD was done which showed: Normal esophagus,Taylor en Y gastrojejunostomy with gastrojejunal anastomosis characterized by healthy- appearing mucosa. Biopsied. There was small remnant of the stomach, the mucosa appeared erythematous and congested biopsies obtained. Normal duodenum. Hemogram q.12 Protonix 40 mg IV b.i.d. NS at 100 mL/hour. Use if hemoglobin levels dropped below seven. Possible prerenal acute kidney injury likely secondary to hypovolemia: The patient came to the hospital after several episodes of hematemesis, epistaxis and red blood diarrhea. Creatinine 1.46, GFR 47, BUN/creatinine ratio 41.8. Kidney function stable NS at 100 mL/hour. AFib: EKG: Irregular rhythm, absence of P waves, AFib, PVC a heart rate of 78, left axis deviation. Plan: Hold Eliquis due to GI bleeding. Diabetes mellitus: Current glucose levels: 190. Plan: Follow-up hemoglobin A1c. Hyperglycemia/hypoglycemia protocol in place. Medium dose sliding scale short- acting insulin. Chronic diastolic congestive heart failure with preserved ejection fraction of 60-65%: Echocardiogram on 2023: LVEF: 60-65%, RVSP 51 mmHg. Right ventricle is mildly dilated with adequate function. Left atrium is severely dilated. Current proBNP 565. Plan: We will continue IV fluids. For today evaluate patient tomorrow Blood pressure is soft hold blood pressure medication at this time. h/o dyslipidemia: Follow-up lipid panel Atorvastatin 80 mg daily. h/o Hypertension: We will hold amlodipine 10 mg due to low blood pressure. h/o BPH: Finasteride 5 mg daily and terazosin 10 mg daily after med reconciliation. Code status: Full code DVT prophylaxis: SCDs Analgesia/sedation: Morphine Line/tube: PIV GI prophylaxis: Protonix Nutrition: Clear liquid diet/NPO after midnight. PT: Ordered Prognosis: Guarded Disposition, continue monitoring patient and H&H, possible DC tomorrow Thompson Alexander MD Internal Medicine Resident Addendum h/o epistaxis, s/p recent cauterization at MS, restarted bleeding, in the meantime bleeding has stopped; pt on anticoagulation for a very long time ematemesis, hematochesi 2 to epistaxis, epistaxis resolved, pt wanting to continue anticoagulation Date of Service: Feb 03, 2025 Billing Provider: LISA ABDI MD Common Visit Codes: [id number] INP/OBS CARE(HIGH) THOMPSON ALEXANDER, RES Feb 03, 2025 18:13 LISA ABDI MD Feb 04, 2025 07:52
[2025-02-03 19:17] LABS: MEAN PLATELET VOLUME 8.3 FL (7.4-10.4); RED CELL DISTRIBUTION WIDTH 13.6 % (11.5-14.5)
[2025-02-04 01:41] LABS: MEAN PLATELET VOLUME 8.1 FL (7.4-10.4); RED CELL DISTRIBUTION WIDTH 13.2 % (11.5-14.5)
[2025-02-04 01:50] LABS: CREATININE 1.13 MG/DL (0.60-1.10); TOTAL CARBON DIOXIDE 24.9 MMOL/L (24-32); eCRCL 58 ML/MIN; eGFR 63 ML/MIN
[2025-02-04 02:00] VITALS: BP 111/51; PULSE 83; RESP 14; TEMP 97.2; O2SAT 94
[2025-02-04 07:00] VITALS: BP 118/62; PULSE 21; RESP 18; TEMP 97.9; O2SAT 97
[2025-02-04] MEDS: PEG 3350/Na sulf,bicarb,Cl/KCl oral sol 4 liter bottle PO ONE (09:55)
[2025-02-04 11:00] VITALS: BP 95/81; PULSE 70; RESP 13; TEMP 97.7; O2SAT 97
[2025-02-04] MEDS ORDERED: desflurane 240ml liquid inh. IH ONE (12:29)
--- NOTE | 2025-02-04 16:12 | DISCHARGE SUMMARY-Residence ---
Discharge Summary Providers to CC Resident Creating Document: MARTIN YANGWOODY, RES ~ Discharge Summary Admission Diagnosis: Syncope Hospital Course DATE OF ADMISSION: 02/02/2025 DATE OF DISCHARGE: 02/04/2025 Discharge Diagnosis\Comment: Syncope Upper GI bleeding-ruled out Epistaxis History of atrial fibrillation on Eliquis Normocytic hyperchromic anemia Prerenal acute kidney injury likely secondary to hypovolemia Vasomotor nephropathy AFib Diabetes mellitus Chronic diastolic congestive heart failure with preserved ejection fraction of 60-65% h/o dyslipidemia h/o Hypertension h/o BPH Operations\Procedures: EGD Consultants: GI specialist, Dr. Emanuel. Complications: None Condition on DC: Stable Continued Medications: [Areds2] () 1 CAP PO BID Atorvastatin Calcium (Lipitor) 80 Mg Tablet 1 TAB PO DAILY for 30 Days, #30 TAB 0 Refills Bisoprolol Fumarate (Bisoprolol Fumarate) 10 Mg Tablet 1 TAB PO DAILY for 30 Days, #30 TAB 0 Refills Carboxymethylcellulose Sodium (Refresh Tears) 0.5 % Drops 1 DROP EACHEYE BID PRN for dry eyes for 30 Days, #15 ML 0 Refills Empagliflozin (Jardiance) 25 Mg Tablet 1 TAB PO DAILY for 30 Days, #30 TAB 0 Refills Ferrous Gluconate (Ferrous Gluconate) 324 Mg (37.5 Mg Iron) Tablet 1 TAB PO BID for iron for 30 Days, #30 TAB 0 Refills Finasteride (PROSCAR tablet) 5 Mg Tablet 1 TAB PO DAILY for 30 Days, #30 TAB 0 Refills Glimepiride* (Amaryl*) 1 Mg Tablet 1 TAB PO DAILY for 30 Days, #30 TAB Lysine (l-Lysine) 500 Mg Tablet 1 TAB PO DAILY for 30 Days, #30 TAB 0 Refills Metformin Hcl* (Metformin ER*) 500 Mg Tab.sr.24h 4 TAB PO DAILY for 30 Days, #120 TAB [place]-3 Fatty Acids ([place]-3) 1,000 Mg Capsule 1 CAP PO BID for 30 Days, #90 CAP 0 Refills Omeprazole (Prilosec) 40 Mg Capsule 1 CAP PO DAILY for 30 Days, #30 CAP Semaglutide (Ozempic) 2 Mg/0.75 Ml (8 Mg/3 Ml) Pen.injctr 2 MG SUBCUT Q7D for 30 Days, #3 ML 0 Refills Spironolactone (Spironolactone) 25 Mg Tablet 25 MG PO DAILY, #30 TAB Terazosin HCl (Terazosin HCl) 10 Mg Capsule 2 CAP PO HS for 30 Days, #30 CAP 0 Refills Zolpidem Tartrate (Zolpidem Tartrate) 5 Mg Tablet 1 TAB PO HSPRN PRN for sleep for 30 Days, #30 TAB 0 Refills Discontinued Medications: Apixaban (Eliquis) 5 Mg Tablet 1 TAB PO Q12H for 30 Days, #60 TAB 0 Refills Sodium Chloride (Saline Nasal Smoot) 0.65 % Smoot 1 SPRAYS BOTHNARES BID PRN for STUFFY NOSE for 7 Days, #60 ML 0 Refills Discharge Summary: HPI: 74 years old male patient with past medical history of CAD s/p four stents, diabetes mellitus, AFib, dyslipidemia, hypertension, BPH, congestive heart failure came to the hospital with chief complaint of syncope. As per patient and daughter Emani Bell (phone number: [phone]) who is at the bedside stated that the patient had nose bleeding yesterday while the patient was swimming. After this episode last night he started having coffee-ground hematemesis 8-9 episodes during the last night. As per patient he has episode of nose bleeding stopped this morning. And during this morning he had an episode of bright red blood diarrhea accompanied by clots. During this afternoon approximately 2:00 p.m. the patient endorses that he passed out while he was walking from his bedroom to the restroom and before this episode he felt like everything is spinning around. As per daughter the patient lost consciousness for approximately 3-4 minutes. The patient did not lose urinary or intestinal control. Currently the patient denies any chest pain, palpitations, urinary symptoms, fever sensation, nausea. Hospital course: 74-year-old male patient came to the hospital with chief complaint of epistaxis. The patient was found with moderate normocytic anemia. Initially the patient had episodes of low blood pressure and the patient experienced an episode of syncope before coming to the hospital. The patient was resuscitated with IV fluids. During the admission Eliquis was held due to the presence of active bleeding. The patient was started on monitor for hemogram every 6 hours, [place] stroenterologist, Dr. Emanuel was consulted due to the presence of hematochezia and hematemesis, suspicion for upper GI bleeding was considered. The patient underwent endoscopy which did not show any active source of GI bleeding from the upper gastrointestinal tract. The patient remained hemodynamically stable, blood pressure remained within reference range. The patient is eager to be discharged home. Recommendation for colonoscopy as an outpatient given to the patient. The patient will be discharged home with home health. Discharge course: The patient remained hemodynamically stable. The patient will be discharged with the following instructions: Come back to the emergency department or call 911 if severe chest pain, fever, p alpitations, urinary or intestinal symptoms is evidenced. Follow-up with Dr. Ulises Velazco, phone number [phone] for colonoscopy tomorrow as an outpatient at 2:00 p.m. Take Protonix one tablet of 40 mg p.o. daily. We are holding her Eliquis due to the risk of bleeding. Follow-up with your primary care physician within two weeks for resuming your blood thinner. Physical exam: General: Well alert, well oriented, not confused, not agitated HEENT: Conjunctive are pale, sclerae clear, no icterus, pupil is equal in both sides, reactive to light, no ear discharge, no pharyngeal erythema or an edema. Neck: Supple, no JVD, no lymphadenopathy and thyromegaly. Chest: Equal air entry on both lungs, no wheezing crackle Cardiovascular: S1-S2 rhythm and rate, no gallops, no rubs, no murmurs Abdomen: No visible peristalsis, Bowel sounds present on auscultation, soft, nontender, no guarding, no rigidity, presence of scar in the left lower quadrant Extremities: No obvious deformities, no pitting edema bilaterally, capillary refill intact, peripheral pulsations are intact on both sides, right thumb s welling, left elbow abrasion, left knee abrasion, presence of scars in bilateral knees. Central Nervous System: No focal neurological deficits, no motor or sensory weakness in all 4 extremities, could move all 4 extremities, 2+ deep tendon reflexes, negative Babinski. Musculoskeletal: No joint swelling, deformities, inflammations, and no scoliosis and back tenderness Skin: Warm and dry. Vital Signs Date Time Temp Pulse Resp B/P (MAP) Pulse Ox O2 Delivery O2 Flow Rate FiO2 02/04/25 11:00 97.7 70 13 95/81 (86) 97 Room Air 02/03/25 08:33 0.0 Laboratory Tests Test 02/02/25 17:22 02/02/25 18:21 02/02/25 19:31 02/02/25 19:48 Troponin I High Sensitivity 19 ng/L 18 ng/L Troponin I High Sens Percent Delta 0 % 5 % Troponin I Hi Sens Absolute Change 0 ng/L -1 ng/L White Blood Count 7.9 X10'3 Red Blood Count 3.63 X10'6 Hemoglobin 11.7 g/dl Hematocrit 34.3 % Mean Corpuscular Volume 94.5 FL Mean Corpuscular Hemoglobin 32.3 PG Mean Corpuscular Hemoglobin Concent 34.2 g/dL Red Cell Distribution Width 13.3 % Platelet Count 165 X10'3 Mean Platelet Volume 7.9 FL Hematology Comments Iron Level 110 UG/DL Total Iron Binding Capacity 267 UG/DL Percent Iron Saturation 41 % Urine Specimen Description Urinal Urine Color Yellow Urine Clarity Clear Urine pH 5.5 Urine Specific [place] 1.015 Urine Protein Negative mg/dl Urine Glucose (UA) >=1000 mg/dl Urine Ketones Negative mg/dl Urine Occult Blood Negative Urine Nitrite Negative Urine Bilirubin Negative Urine Urobilinogen 0.2 E.U/dL Urine Leukocyte Esterase Negative Urine RBC None seen /HPF Urine WBC None seen /HPF Urine Squamous Epithelial Cells None seen /LPF Urine Bacteria Few /HPF Urine Culture Indicated Not ind Volume Urine Centrifuged 10 ml Urine Eosinophils No eos /HPF Urine Osmolality 466 MOSM/K Urine Random Creatinine 28.0 MG/DL Urine Random Sodium 91 MEQ/L Urine Random Urea 418.0 MG/DL Urine Comment Test 02/02/25 22:14 02/03/25 01:06 02/03/25 08:58 02/03/25 09:10 Glucometer 221 mg/dl 179 mg/dl White Blood Count 7.4 X10'3 5.1 X10'3 Red Blood Count 3.31 X10'6 3.14 X10'6 Hemoglobin 10.7 g/dl 10.3 g/dl Hematocrit 30.8 % 29.7 % Mean Corpuscular Volume 93.1 FL 94.5 FL Mean Corpuscular Hemoglobin 32.3 PG 32.8 PG Mean Corpuscular Hemoglobin Concent 34.7 g/dL 34.7 g/dL Red Cell Distribution Width 13.4 % 13.2 % Platelet Count 151 X10'3 144 X10'3 Mean Platelet Volume 8.1 FL 8.4 FL Neutrophils (%) (Auto) 75.0 % Lymphocytes (%) (Auto) 16.7 % Monocytes (%) (Auto) 7.2 % Eosinophils (%) (Auto) 0.7 % Basophils (%) (Auto) 0.4 % Neutrophils # (Auto) 5.5 X10'3 Lymphocytes # (Auto) 1.2 X10'3 Monocytes # (Auto) 0.5 X10'3 Eosinophils # (Auto) 0.1 X10'3 Basophils # (Auto) 0.0 X10'3 CBC Comment Sodium Level 141 MMOL/L Potassium Level 4.7 MMOL/L Chloride Level 109 MMOL/L Carbon Dioxide Level 25.9 MMOL/L Anion Gap 6 Blood Urea Nitrogen 64 MG/DL Creatinine 1.41 MG/DL Estimated GFR/1.73 m2 49 ML/MIN BUN/Creatinine Ratio 45.4 Glucose Level 143 MG/DL Calcium Level 8.0 MG/DL Magnesium Level 2.0 MG/DL Total Bilirubin 0.3 MG/DL Aspartate Amino Transf (AST/SGOT) 22 U/L Alanine Aminotransferase (ALT/SGPT) 45 U/L Alkaline Phosphatase 74 IU/L Total Protein 5.5 G/DL Albumin 2.9 G/DL Globulin 2.6 G/DL Albumin/Globulin Ratio 1.1 Triglycerides Level 109 MG/DL Cholesterol Level 92 MG/DL LDL Cholesterol 36 MG/DL HDL Cholesterol 42 MG/DL Cholesterol/HDL Ratio 2.2 Chemistry Comments Hematology Comments Prothrombin Time 10.8 SECONDS INR International Normalized Ratio 1.1 INR Activated Partial Thromboplast Time 25 SECONDS Coagulation Comments Test 02/03/25 11:54 02/03/25 12:20 02/03/25 16:52 02/03/25 18:16 White Blood Count 6.1 X10'3 6.8 X10'3 Red Blood Count 3.00 X10'6 3.09 X10'6 Hemoglobin 10.0 g/dl 9.9 g/dl Hematocrit 28.5 % 29.2 % Mean Corpuscular Volume 95.0 FL 94.5 FL Mean Corpuscular Hemoglobin 33.2 PG 32.1 PG Mean Corpuscular Hemoglobin Concent 34.9 g/dL 34.0 g/dL Red Cell Distribution Width 13.5 % 13.6 % Platelet Count 142 X10'3 141 X10'3 Mean Platelet Volume 8.1 FL 8.3 FL Hematology Comments Glucometer 176 mg/dl 185 mg/dl Test 02/03/25 20:48 02/04/25 01:00 02/04/25 07:27 Glucometer 178 mg/dl 145 mg/dl White Blood Count 6.4 X10'3 Red Blood Count 2.91 X10'6 Hemoglobin 9.5 g/dl Hematocrit 27.3 % Mean Corpuscular Volume 93.9 FL Mean Corpuscular Hemoglobin 32.5 PG Mean Corpuscular Hemoglobin Concent 34.7 g/dL Red Cell Distribution Width 13.2 % Platelet Count 139 X10'3 Mean Platelet Volume 8.1 FL Neutrophils (%) (Auto) 71.5 % Lymphocytes (%) (Auto) 19.8 % Monocytes (%) (Auto) 6.1 % Eosinophils (%) (Auto) 2.1 % Basophils (%) (Auto) 0.5 % Neutrophils # (Auto) 4.6 X10'3 Lymphocytes # (Auto) 1.3 X10'3 Monocytes # (Auto) 0.4 X10'3 Eosinophils # (Auto) 0.1 X10'3 Basophils # (Auto) 0.0 X10'3 CBC Comment Sodium Level 140 MMOL/L Potassium Level 4.5 MMOL/L Chloride Level 108 MMOL/L Carbon Dioxide Level 24.9 MMOL/L Anion Gap 7 Blood Urea Nitrogen 47 MG/DL Creatinine 1.13 MG/DL Estimated GFR/1.73 m2 63 ML/MIN BUN/Creatinine Ratio 41.6 Glucose Level 143 MG/DL Calcium Level 8.3 MG/DL Magnesium Level 2.2 MG/DL Total Bilirubin 0.4 MG/DL Aspartate Amino Transf (AST/SGOT) 18 U/L Alanine Aminotransferase (ALT/SGPT) 35 U/L Alkaline Phosphatase 71 IU/L Total Protein 5.6 G/DL Albumin 2.8 G/DL Globulin 2.8 G/DL Albumin/Globulin Ratio 1.0 Chemistry Comments Hand x-ray: There is no evidence of acute fracture or dislocation. [id number] degenerative changes of the distal interphalangeal joints of the 3rd and 4th digits. There appears to be old fracture deformity of the proximal part of the 3rd digit middle phalanx. Knee x-ray: There is total knee replacement with intact hardware and no evidence of periprosthetic fractures. No dislocation. Well corticated bony fragments adjacent to the medial knee joint space which most likely represent sequela of prior injury/ surgery. Vascular calcification is noted. Chest x-ray: Indistinctness of the left lateral hemidiaphragm which may be from overlying cardiac silhouette with underlying effusion/atelectasis not excluded. Head CT scan: 1 x 0.7 cm hypodensity over the left basal ganglia which may represent infarct of unknown chronicity. Otherwise, no evidence of acute intracranial abnormalities. If there is concern for acute infarct, MRI should be considered for further evaluation. *Problems/Diagnosis: (1) Epistaxis Status: Acute (2) Rectal bleeding Status: Acute (3) Acute kidney injury Status: Acute Total Time Spent on D/C: > 30 Minutes Date of Service: Feb 04, 2025 Billing Provider: LISA ABDI MD Common Visit Codes: 81902-[id number]/[id number] DISCH DAY >30min WOODY GREEN, RES Feb 04, 2025 16:09 LISA ABDI MD Feb 05, 2025 08:03
--- NOTE | 2025-02-06 11:46 | PATHOLOGY REPORT ---
[facility] [address] [place] [address] SURGICAL PATHOLOGY REPORT CaseNumber: [id number] Surgeon:Ulises Velazco M.D. CLINICAL INFORMATION CLINICAL INFORMATION: GI bleed. DIAGNOSIS DIAGNOSIS: STOMACH; BIOPSY - BENIGN GASTRIC MUCOSA. - NEGATIVE FOR INTESTINAL METAPLASIA. - NEGATIVE FOR H. PYLORI (CONFIRMED BY IMMUNOSTAIN). MICROSCOPIC DESCRIPTION MICROSCOPIC DESCRIPTION: A single H&E stained slide showing multiple levels of gastric mucosa is revi ewed. There is no significant increase in acute or chronic inflammation. The glands are appropriately spaced; There is no evidence of fibrosis. There is no evidence of dysplasia, intestinal metaplasia, or Helicobacter pylori. H. pylori IHC stain is performed on the specimen. There are no H. pylori organisms identified on the slide. GROSS DESCRIPTION GROSS DESCRIPTION: Received in a container of formalin labeled with the patient's name, number, and " gastric BX" are 3 pieces of josue tissue 0.1-0.6 x 0.1 x 0.1 cm. The specimen is entirely submitted as A1. The time at which the specimen was removed was 727. The time at which the specimen was placed in formalin was 727. Electronically signed by: Ivan Yadav, 02/06/2025 11:13:00 AM
== END 2025-02-04 15:25 | disposition home or self-care (01) | DRG 150 ==
LOC: ER 14:56 → ED HOLD 17:11 → PCU 3S 20:10
PROVIDERS: ADMIT Internal Medicine; ATTEND Internal Medicine
PROC: 0DB68ZX Excision of Stomach, Via Natural or Artificial Opening Endoscopic, Diagnostic (ICD-10-PCS; principal; 2025-02-03 07:11)
DX: R04.0 Epistaxis (principal); N17.0 Acute kidney failure with tubular necrosis; I50.32 Chronic diastolic (congestive) heart failure; E11.9 Type 2 diabetes mellitus without complications; I48.91 Unspecified atrial fibrillation; I25.10 Atherosclerotic heart disease of native coronary artery without angina pectoris; G89.29 Other chronic pain; N40.0 Benign prostatic hyperplasia without lower urinary tract symptoms; I11.0 Hypertensive heart disease with heart failure; E78.5 Hyperlipidemia, unspecified; Z96.653 Presence of artificial knee joint, bilateral; G47.00 Insomnia, unspecified; D64.9 Anemia, unspecified; Z79.899 Other long term (current) drug therapy; Z95.5 Presence of coronary angioplasty implant and graft; Z98.84 Bariatric surgery status
CPT/HCPCS: 36415; 43239; 70450; 71045; 73130; 73560; 80048; 80053; 80061; 81001; 82570; 82728; 82948; 83036; 83540; 83550; 83735; 83880; 83930; 83935; 84300; 84443; 84484; 84540; 85025; 85027; 85610; 85730; 87081; 87207; 93005; 96360; 97116; 97161; 97530; 99285; A4620; G0378; J0330; J1815; J2003; J2371; J2470; J2704; J3010; J3490; J7030; J7120

== ENCOUNTER 2025-02-16 08:40 | Day surgery (SDC) | payer MEDICARE, OTHER ==
[2025-02-16] VITALS (10 sets, daily range): BP systolic 123–149; BP diastolic 60–99; PULSE 62–68; RESP 11–22; TEMP 97.6; O2SAT 94–99
[~2025-02-16] VITALS: Ht 177.8 cm; Wt 117.9 kg
[~2025-02-16 08:40] MED LIST changes: +AMLO2.5T2 PO; -APIX5TAB3 PO; +BISO10TA16 PO; +FURO20TA4 PO; +LYSI500T20 PO; -OMEP40CA21 PO; -SODI30SP3 BOTHNARES; +SPIR25TA5 PO; +ZOLP5TAB18 PO; -ZOLP5TAB8 PO
[2025-02-16] MEDS ORDERED: ringers solution, lacted 1,000 ML IV SCH (09:58)
[2025-02-16] MEDS ORDERED: MIDAZolam 1 MG/ML 5ML VIAL ONE (12:12)
[2025-02-16] MEDS ORDERED: fentaNYL/PF 50MCG/1 ML 2ML syringe ONE (12:12)
== END 2025-02-16 13:20 | disposition home or self-care (01) ==
LOC: GI LAB 08:40
PROVIDERS: ATTEND Internal Medicine Gastroenterology
DX: K92.1 Melena (principal); I11.0 Hypertensive heart disease with heart failure; I50.9 Heart failure, unspecified; E10.9 Type 1 diabetes mellitus without complications; I25.10 Atherosclerotic heart disease of native coronary artery without angina pectoris; I48.91 Unspecified atrial fibrillation; G47.33 Obstructive sleep apnea (adult) (pediatric); Z86.0100 Personal history of colon polyps, unspecified; Z79.899 Other long term (current) drug therapy; Z90.49 Acquired absence of other specified parts of digestive tract; Z96.653 Presence of artificial knee joint, bilateral; Z98.890 Other specified postprocedural states; Z83.3 Family history of diabetes mellitus; Z82.49 Family history of ischemic heart disease and other diseases of the circulatory system
CPT/HCPCS: 45378; G0500; J2250; J3010; J7120; Z7512; 99152; A4620